=== PATIENT | female | born 1975 | race Caucasian/White ===

== ENCOUNTER 2025-06-14 14:46 | Outpatient (REF) | payer BC, SELFPAY ==
--- NOTE | 2025-06-14 11:30 | PAPFT_PTH ---
PATIENT: Janina Shine LOC: [facility] U#:[id number] AGE/SX: 49/F ROOM: RE06/14/[address]: Lauryn Tatum MD : 1975 BED: DIS: 06/14/2025 SPEC #: [id number] RECD: 06/14/25 18:00 STATUS: A[place]JO [place] #: [id number] CANDIDA: 06/14/25 11:[address]: Lauryn Tatum DEPT: [facility], 1928–1983 Cytology RECD BY: Yani Fuentes ENTERED: 06/14/25 18:00 SP TYPE: PAPFT OTHR DR: Faye Arnold, DARRYN Tissues: 1 - CX/ENDOCX FOR PAP SMEARS Procedures: PAP THIN PREP/[facility] Screening HPV DNA PROBE Comments: [id number] (HPV 16 & 18/45)
== END 2025-06-14 14:47 | disposition home or self-care (01) ==
LOC: LBN 14:46
PROVIDERS: PCP Nurse Practitioner Family; Visit Provider Obstetrics & Gynecology
DX: Z12.4 Encounter for screening for malignant neoplasm of cervix (principal)
CPT/HCPCS: 88142; 87624